=== PATIENT | female | born 1980 | race Caucasian/White ===

== ENCOUNTER 2019-09-30 09:14 | Emergency (ER) | payer OTHER, SELFPAY ==
[2019-09-30 09:25] VITALS: BP 116/78; PULSE 83; RESP 20; O2SAT 100
--- NOTE | 2019-09-30 09:28 | ED.SKABFB ---
HPI - Skin/Abscess/Foreign Bdy General Chief complaint: Skin/Abscess/Foreign Body Stated complaint: poison ubaldo Time Seen by Provider: 09/30/19 09:27 Source: patient and RN notes reviewed Mode of arrival: ambulatory Limitations: no limitations History of Present Illness HPI narrative: 38-year-old female presents with concern for 1 week history of rash on her bilateral legs. Reports that it has spread from lower legs upper legs. She denies any other rash, swollen tongue, itchy tongue, fever, nausea, vomiting, diarrhea. Reports she is been using IV dry and calamine with little relief. Reports she cleared brush 1 week ago. complaint: rash Related Data Allergies Allergy/AdvReac Type Severity Reaction Status Date / Time No Known Allergies Allergy Unverified 07/07/18 18:28 Review of Systems Review of Systems: Narrative: CONSTITUTIONAL: Denies malaise, chills, sweats, or fever. EYES: Denies redness, pain ENT: Denies swollen tongue, swollen lips, difficulty swallowing CARDIOVASCULAR: Denies chest pain, palpitations, or edema. RESPIRATORY: Denies cough or dyspnea. GASTROINTESTINAL: Denies abdominal pain, nausea, vomiting, diarrhea SKIN: Reports pruritic rash on bilateral lower legs MUSCULOSKELETAL: Denies myalgia. NEUROLOGIC: Denies headache. All systems reviewed & are unremarkable except as noted in HPI and below PMFSH Comments At time of signature, agree with nursing past medical, surgical, social and family history. There is no relevant family history pertinent to the presenting complaint Exam Narrative: Exam Narrative: GENERAL: Well-appearing, well-nourished, and in no acute distress. HEAD: Normocephalic EYES: PERRLA, conjunctivae clear ENT: Nares clear. Mucous membranes moist. Oropharynx without edema, erythema or lesions. Tonsils not enlarged and without exudate. NECK: Supple. CHEST: No respiratory distress. Clear to auscultation. No bony deformities, no asymmetry. Speaks in full sentences. HEART: Regular rate and rhythm. No murmur heard. Normal peripheral pulses. SKIN: Warm, dry. Linear patches of erythematous plaque and occasional vesicles noted to bilateral lower legs NEURO: Alert and oriented x3. PSYCH: Normal mood and affect Course Course Emergency Course: Patient is aware of diagnosis, understands and agrees to treatment plan. Anticipatory guidance given. Patient agrees to follow-up as directed and is aware of reasons to seek care at the emergency department. Portions of this record may have been created with voice recognition software Vital Signs Vital signs: Vital Signs Pulse Rate 83 09/30/19 09:25 Respiratory Rate 20 09/30/19 09:25 Blood Pressure 116/78 09/30/19 09:25 Pulse Oximetry 100 09/30/19 09:25 Pulse Rate 83 09/30/19 09:25 Respiratory Rate 20 09/30/19 09:25 Blood Pressure 116/78 09/30/19 09:25 Pulse Oximetry 100 09/30/19 09:25 Reviewed. MDM - Skin/Abscess/Foreign Bdy MDM Narrative Medical decision making narrative: Does not appear at this time to be erythema multiforme, bullous, SJS, TEN; no evidence at this time to suggest RMSF, endocarditis or Lyme disease; patient looks well, nontoxic and is tolerating oral intake; no neurologic signs or symptoms; no headache, photophobia or neck pain; afebrile; appropriate for initial outpatient treatment; discussed the importance of follow-up, patient agrees; question, viral exanthema, contact dermatitis, allergic dermatitis, eczema, urticaria, shingles. No soft palate or uvula edema, no tongue, lip edema or other mucosal involvement, no respiratory compromise, no stridor, no wheezing, no wheezing, no history of syncope, no hypotension, no nausea, vomiting, or diarrhea. Instructed patient to go to nearest ER immediately for any worsening symptoms including but not limited to: fever, spreading rash, pain, sore throat, headache, dizziness, chest pain, trouble breathing, or any symptoms concerning to the patient. Critical Care Ti
== END 2019-09-30 09:42 | disposition home or self-care (01) ==
PROVIDERS: Emergency Provider Nurse Practitioner; PCP Internal Medicine
DX: L25.5 Unspecified contact dermatitis due to plants, except food (principal)
CPT/HCPCS: 99213; G0463